=== PATIENT | female | born 1960 | race Caucasian/White ===

== ENCOUNTER 2022-07-21 12:02 | Emergency (ER) | payer MEDICAID, SELFPAY ==
[2022-07-21] VITALS (8 sets, daily range): BP systolic 97–203; BP diastolic 55–117; PULSE 62–69; RESP 18–19; TEMP 36.7; O2SAT 93–97; BMI 18.1
--- NOTE | 2022-07-21 12:10 | ED_ITS ---
HPI - General Adult General: Chief complaint: General Medical Stated complaint: HTN Time Seen by Provider: 07/21/22 12:09 History of Present Illness: CC: Elevated BP HPI: [61]yo patient w/ x hx of HTN, aortic aneurysm s/p repair, valvular surgery presenting to the ED with complaints that his BP is not well controlled. Patient is on lisinopril 20mg for BP. Baseline daily BP noted at >200 systolic . However, the patient noticed today BP continues to be elevated despite taking 80mg of lisinopril. Denies chest pain, SOB, palpitation, N/V/D, pain radiating to the shoulder, headache, vision changes, LOC, or focal neurological deficits. Patient also denies light-headedness, syncope, vertigo abdominal pain, back pain. Tolerating PO meds without issues. Onset: earlier today Duration: ongoing Location: home Severity: mild Associated symptoms: Deny chest pain, dyspnea, nausea, rash, palpitations or vomiting Review of Systems Const: Denies: fever(s) or chills Eyes: Denies: change in vision ENMT: Denies: mouth pain Card: Denies: chest pain or palpitations Resp: Denies: dyspnea or non-productive cough GI: Denies: abdominal pain, nausea, vomiting or diarrhea : Denies: dysuria Musc: Denies: extremity pain Skin/Breast: Denies: rash or new lesions Neuro: Denies: weakness in extremities Psych: Reports: other (Normal mood) Rakesh/Lymph: Denies: easy bruising PFSH ED PFSH: Medical History (Updated 07/21/22 @ 13:17 by Felipe Greco MD) Hypertension Surgical History (Updated 07/21/22 @ 13:17 by Felipe Greco MD) H/O aortic arch repair Social History (Updated 07/21/22 @ 13:17 by Felipe Greco MD) Smoking and tobacco status: never smoked Alcohol intake: never Substance/Drug Use: never Physical Exam Const: COMMON NORMALS: alert HENMT: COMMON NORMALS: atraumatic HEAD & SCALP: atraumatic MOUTH: moist mucous membranes not abnormal Eye: COMMON NORMALS: EOMs intact bilaterally and conjunctivae normal CONJUNCTIVA: Yes conjunctivae normal Neck/C-Spine: COMMON NORMALS: full ROM and supple Chest: OTHER: sternotomy scar well-healed Resp: COMMON NORMALS: normal respiratory effort and clear to auscultation bilaterally AUSCULTATION: clear to auscultation bilaterally Cardio: COMMON NORMALS: regular rate RATE: regular rate OTHER: 2+ radial pulses b/l GI: COMMON NORMALS: Soft to palpation and non-tender PALPATION: Yes Soft to palpation OTHER: No focal TTP. NO guarding rebound, guarding, rigidity. No CVA tenderness to percussion. Neg Echols/Neg McBurney's point tenderness, no suprabupic tenderness to palpation. Extremity: COMMON NORMALS: full ROM Neuro: SENSORIUM/ORIENTATION: Yes alert MOTOR EXAM: No Abnormal motor strength present and Other motor observations present (no focal motor deficits) Psych: COMMON NORMALS: speech normal SPEECH: Yes normal speech MOOD & AFFECT: Yes euthymic mood Course Vital Signs: Vital signs: Vital Signs Temperature 98.0 F 07/21/22 12:04 Pulse Rate 62 07/21/22 15:00 Respiratory Rate 19 H 07/21/22 13:09 Blood Pressure 138/86 07/21/22 16:52 Pulse Oximetry 93 07/21/22 15:33 Oxygen Delivery Me thod 07/21/22 15:33 MDM - General Adult Medical Decision Making [61]yo patient w/ hx of HTN on lisinopril 20mg presenting to the ED with high BP readings x 1 day without other medical complaints. BP in the ED of 200/88. Rest of exam including full neuro exam intact. Given presentation, history and exam, I do not suspect aortic dissection, hypertensive encephalopathy, intracranial hemorrhage, ACS, TIA/CVA, flash pulmonary edema. Intervention: Nifedipine 30mg x 1, amlodipine 5mg for elevated BP [2:30pm] On reassessment, BP improved on reassessment. Patient continues to be symptom-free at this time. Troponin x 2 with delta less than 5. EKG showed STD likely secondary to tall amplitude R wave as opposed to true ischemia. Patient has not had any chest pain and delta troponin does not appear to be rising. Do not suspect ACS or unstable angina currently. Patient currently does not have any chest pain, do not suspect acute aortic dissection. Creatinine within normal limit. No suspicion for any end organ damange. Discussed with the patient the importance of logging BPs and following up with his PCP for adjustment of BP if BP continues to be persistently high. Given return instructions. Rx: Amlodipine 5mg QDaily x 7 days Based on history, exam, vital signs, and work up (as indicated) I do not suspect an ongoing emergent medical condition, and I believe the patient is safe for discharge and outpatient follow-up. The plan of care was discussed with the patient and all questions were answered. The patient agrees with the plan of care and is discharged in stable condition with verbal and written instructions, and verbalized understanding and ability to comply. I discussed the diagnosis and treatment plan at length with the patient. The patient understands signs and symptoms (including those which are new or worsening) which should prompt return to the ED. The patient is to seek prompt outpatient follow-up as noted verbally and/or in the discharge instructions. At the time of discharge the patient is well-appearing, well-hydrated, non-toxic, and assures appropriate follow-up as an outpatient. Lab Data : 07/21/22 12:15 07/21/22 12:15 Laboratory Results WBC 9.7 10^3/uL (4.0-10.0) 07/21/22 12:15 RBC 4.43 10^6/uL (4.1-5.3) 07/21/22 12:15 Hgb 13.6 g/dL (11.5-15.3) 07/21/22 12:15 Hct 40.9 % (37.0-47.0) 07/21/22 12:15 MCV 92.3 fl (81-99) 07/21/22 12:15 MCH 30.7 pg (28.0-34.0) 07/21/22 12:15 MCHC 33.3 g/dL (30.0-36.0) 07/21/22 12:15 RDW 16.4 % (12.1-15.1) H 07/21/22 12:15 Plt Count 127 10^3/cmm (130-400) L 07/21/22 12:15 MPV 11.8 fL (7.4-10.4) H 07/21/22 12:15 Neut % (Auto) 70.3 % 07/21/22 12:15 Lymph % (Auto) 17.7 % 07/21/22 12:15 [place] % (Auto) 7.6 % 07/21/22 12:15 Eos % (Auto) 3.3 % 07/21/22 12:15 Baso % (Auto) 0.8 % 07/21/22 12:15 Neut # (Auto) 6.81 10^3/uL (1.8-7.7) 07/21/22 12:15 Lymph # (Auto) 1.7 10^3/uL (0.8-4.8) 07/21/22 12:15 [place] # (Auto) 0.7 10^3/uL (0.2-0.9) 07/21/22 12:15 Eos # (Auto) 0.3 10^3/uL (0.0-0.8) 07/21/22 12:15 Baso # (Auto) 0.1 10^3/uL (0.0-0.1) 07/21/22 12:15 Nucleated RBC % (auto) 0 % 07/21/22 12:15 Nucleated RBCs # 0.0 /100WBC 07/21/22 12:15 Sodium 138 mmol/L (136-145) 07/21/22 12:15 Potassium 4.1 mmol/L (3.5-5.1) 07/21/22 12:15 Chloride 101 mmol/L (98-107) 07/21/22 12:15 Carbon Dioxide 26 mmol/L (22-29) 07/21/22 12:15 Anion Gap 15.1 (5-19) 07/21/22 12:15 BUN 6 mg/dL (8-23) L 07/21/22 12:15 Creatinine 0.7 mg/dL (0.5-0.9) 07/21/22 12:15 GFR Calculation 85.1 mL/min (90-130) L 07/21/22 12:15 Glucose 96 mg/dL (65-115) 07/21/22 12:15 Calculated Osmolality 283 mOsm/kg (285-295) L 07/21/22 12:15 Calcium 9.1 mg/dL (8.5-10.5) 07/21/22 12:15 Troponin T Baseline 17 ng/L (0-10) H 07/21/22 12:15 Troponin T 120 Minute 16.38 ng/L (0-10) H 07/21/22 14:14 Delta Troponin T -0.62 ABS# (0-10) L 07/21/22 14:14 Discharge Plan Discharge Patient Disposition: Home Clinical Impression: Hypertension Condition: Stable Prescriptions: New amlodipine 5 mg tablet 5 mg PO DAILY 20 Days Qty: 20 0RF Discharge Orders: Discharge ED (Routine); Ordered 07/21/22 Ordered By: Felipe Greco Discharge Diet: Advance as tolerated Discharge Activity: Increase activity as tolerated Patient Instructions: Hypertension (ED) Activity Restrictions/Additional Instructions: You need to follow-up with your primary care provider for further adjustment of your blood pressure. Your blood pressure puts you at risk for developing strokes and heart attack. Therefore it is very important for you to follow-up with this number to see if the numbers improve gradually. Because blood pressure adjustment is a gradual process, were not able to change it in 1 visit. Therefore please log your blood pressure and follow-up with your primary care provider in the next 72 hours for further adjustment of your blood pressures. Coding Level of Care Code ED [employer] Operator for [employer] Fwd Exam Comprehensive
[2022-07-21 12:31] LABS: Basophils # 0.1 10^3/uL (0.0-0.1); Basophils % 0.8 %; Eosinophils # 0.3 10^3/uL (0.0-0.8); Eosinophils % 3.3 %; Hematocrit 40.9 % (37.0-47.0); Hemoglobin 13.6 g/dL (11.5-15.3); Lymphocytes # 1.7 10^3/uL (0.8-4.8); Lymphocytes % 17.7 %; Mean Corpuscular HGB Conc 33.3 g/dL (30.0-36.0); Mean Corpuscular Hemoglobin 30.7 pg (28.0-34.0); Mean Corpuscular Volume 92.3 fl (81-99); Mean Platelet Volume 11.8 fL (7.4-10.4); Monocytes # 0.7 10^3/uL (0.2-0.9); Monocytes % 7.6 %; Neutrophils # 6.81 10^3/uL (1.8-7.7); Neutrophils % 70.3 %; Nucleated Red Blood Cells % 0 %; Platelet Count 127 10^3/cmm (130-400); Red Blood Count 4.43 10^6/uL (4.1-5.3); Red Cell Distribution Width 16.4 % (12.1-15.1); White Blood Count 9.7 10^3/uL (4.0-10.0)
--- NOTE | 2022-07-21 12:34 | ECG_ITS ---
[facility] Test Date: 2022-07-21 Pat Name: Jessica Woodard Department: Room: Gender: Female Office Mail Clerk: : 1960 Requested By: Felipe Greco Order Number: [id number] Jess MD: Magdalena Black M.D. Measurements Intervals [place] Rate: 61 P: 79 PA: 152 QRS: 75 QRSD: 97 T: 248 QT: 436 QTc: 440 Interpretive Statements SINUS RHYTHM LEFT VENTRICULAR HYPERTROPHY AND ST-T CHANGE [VOLTAGE CRITERIA PLUS ST/T ABNORMALITY] No previous ECG available for comparison Electronically Signed On 07-21-2022 20:54:30 CDT by Magdalena Black M.D. [id number]
[2022-07-21 12:52] LABS: Anion Gap 15.1 (5-19); Blood Urea Nitrogen 6 mg/dL (8-23); Calcium 9.1 mg/dL (8.5-10.5); Carbon Dioxide 26 mmol/L (22-29); Chloride 101 mmol/L (98-107); Glomerular Filtration Rate 85.1 mL/min (90-130); Glucose 96 mg/dL (65-115); Osmolality Calculated 283 mOsm/kg (285-295); Potassium 4.1 mmol/L (3.5-5.1); Sodium 138 mmol/L (136-145)
[2022-07-21] MEDS: acetaminophen 500 mg Tablet PO (13:04)
[2022-07-21] MEDS: NIFEdipine ER (24 hr) 30 mg Tablet PO (13:04)
[2022-07-21] MEDS: amlodipine 10 mg Tablet PO (13:05)
[2022-07-21 13:15] LABS: Troponin(5th) Baseline 17 ng/L (0-10)
[2022-07-21 14:39] LABS: Troponin 5 2HR 16.38 ng/L (0-10)
[2022-07-21 14:50] LABS: Troponin 5 2HR Delta -0.62 ABS# (0-10)
[2022-07-21] MEDS: hyDRALAzine 20 mg/mL INJ 1 mL IVP (14:55)
== END 2022-07-21 16:50 | disposition home or self-care (01) ==
PROVIDERS: Emergency Provider Emergency Medicine
DX: I10 Essential (primary) hypertension (principal)
CPT/HCPCS: 36415; 80048; 84484; 85025; 93005; 96374; 99285; J0360